=== PATIENT | female | born 1960 | race Two or more races ===

== ENCOUNTER 2021-04-14 06:01 | Day surgery (SDC) | payer OTHER ==
[~2021-04-14 06:01] MED LIST: CLONAZEPAM1 MG PO; COZAAR25 MG PO; GABAPENTIN800 M1 PO; HUMULIN 70100 UNIT/2 SUBCUTANEO; LANTUS SOL100 UNIT/1 SQ; MOTEGRITY2 MG PO; SEROQUEL50 MG PO; SYNTHROID88 MCG PO; TRAZODONE HCL150 MG PO
== END 2021-04-14 17:00 | disposition home or self-care (01) ==
LOC: CIR.AMB 06:01
PROVIDERS: ATTEND Orthopaedic Surgery Hand Surgery
DX: S64.31XA Injury of digital nerve of right thumb, initial encounter (principal); Z20.822 Contact with and (suspected) exposure to COVID-19